=== PATIENT | male | born 1995 | race Two or more races ===

== ENCOUNTER 2022-05-28 21:08 | Emergency (ER) | payer OTHER, MEDICAID ==
[~2022-05-28] VITALS: Ht 172.7 cm; Wt 71.3 kg
[2022-05-28 21:21] VITALS: BP 139/81
[2022-05-29] MEDS ORDERED: ONDANSETRON ODT 4 MG TAB PO ONE (00:30)
[2022-05-29] MEDS ORDERED: HYDROcodone-ACET 5/325MG TAB PO ONE (00:30)
[2022-05-29] MEDS ORDERED: HYDR-4902 PO (00:41)
[2022-05-29] MEDS ORDERED: ONDA-144 PO (00:41)
== END 2022-05-29 00:54 | disposition home or self-care (01) ==
LOC: EDSEX 21:08 → ER 21:08
DX: S02.40DA Maxillary fracture, left side, initial encounter for closed fracture (principal); S02.2XXA Fracture of nasal bones, initial encounter for closed fracture; Y04.2XXA Assault by strike against or bumped into by another person, initial encounter; Y93.89 Activity, other specified; Y92.89 Other specified places as the place of occurrence of the external cause; Y99.8 Other external cause status
CPT/HCPCS: 70450; 70486; 72125; 99284; Q0162